=== PATIENT | female | born 1990 | race African-American/Black ===

== ENCOUNTER 2017-12-31 10:18 | Emergency (ER) | payer SELFPAY ==
--- NOTE | 2017-12-31 13:06 | ER ---
Nurse's Notes [facility] Name: Bernice Phillips Age: 27 yrs Sex: Female : 1990 Arrival Date: 12/31/2017 Time: 10:24 Bed 9 Private MD: [place], None Diagnosis: Presentation: 12/31 10:55 Presenting complaint: Patient states: sore throat and cough x 2 weeks ago. Hoarse voice aa5 noted. Transition of care: patient was not received from another setting of care. Onset of symptoms was December 2017. Risk Assessment: Do you want to hurt yourself or someone else? Patient reports no desire to harm self or others. Initial Sepsis Screen: Does the patient meet any 2 criteria? No. Patient's initial sepsis screen is negative. Does the patient have a suspected source of infection? No. Patient's initial sepsis screen is negative. Care prior to arrival: None. 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 - Social history:: Smoking status: Patient/guardian denies using tobacco. - Ebola Screening: : No symptoms or risks identified at this time. Vital Signs: 10:56 BP 130 / 83; Pulse 105; Resp 16 S; Temp 98.0(TE); Pulse Ox 98% on R/A; Weight 149.69 kg aa5 (R); Height 5 ft. 6 in. (167.64 cm) (R); Pain 5/10; 10:56 Body Mass Index 53.26 (149.69 kg, 167.64 cm) aa5 ED Course: 10:24 Patient arrived in ED. mr 10:24 None, None is Private Physician. mr 10:55 Arm band placed on. aa5 10:56 Triage completed. aa5 13:03 Asif Duron PA is PHCP. cp 13:03 Asif Gan MD is Attending Physician. cp 13:05 Patient did not have IV access during this emergency room visit. ss Administered Medications: No medications were administered Outcome: 13:05 Eloped from waiting room. ss 13:06 Patient left the ED. ss Signatures: Belkys Blue Audri, RN RN aa5 Rae Johns RN RN ss Asif Duron PA PA cp
== END 2017-12-31 13:06 | disposition left against medical advice (07) ==
LOC: ER 10:18
DX: Z53.21 Procedure and treatment not carried out due to patient leaving prior to being seen by health care provider (principal)
CPT/HCPCS: 99281